=== PATIENT | female | born 1990 | race Asian ===

== ENCOUNTER 2018-06-04 04:55 | Inpatient (IN) | payer OTHER ==
[~2018-06-04] VITALS: Ht 157.5 cm; Wt 78.6 kg
[2018-06-04 05:40] LABS: MICROSCOPIC INDICATED
[2018-06-04] MEDS ORDERED: FENTANYL PF 100 MCG/2ML IV PRN (08:00)
[2018-06-04] MEDS ORDERED: OXYTOCIN 30U/ 0.9% NaCL 500ML 500 ML IV ONE (08:00)
[2018-06-04] MEDS ORDERED: D5%-LACTATED RINGERS 1,000 ML IV SCH (08:00)
[2018-06-04] MEDS ORDERED: ONDANSETRON 2MG/ML, 2ML IVPush PRN ×2 (08:00→12:30)
[2018-06-04] MEDS ORDERED: OXYTOCIN 30U/ 0.9% NaCL 500ML 500 ML IV PRN (08:00)
[2018-06-04] MEDS ORDERED: FENTANYL PF 100 MCG/2ML IVPush PRN (08:00)
[2018-06-04] MEDS ORDERED: LIDOCAINE 1%, 20ML ONE (08:46)
[2018-06-04] MEDS ORDERED: NEWBORN KIT ONE (08:46)
[2018-06-04] MEDS ORDERED: OXYTOCIN 30U/ 0.9% NaCL 500ML 500 ML ONE ×2 (08:46→21:19)
[2018-06-04] MEDS ORDERED: MISOPROSTOL 200 MCG TABLET ONE (08:46)
[2018-06-04] MEDS: LACTATED RINGERS 1,000 ML IV SCH ×2 (08:57→11:31)
[2018-06-04 08:59] LABS: BASOPHILS # (AUTO) 0.02 x10^3/uL (0-0.1); BASOPHILS % (AUTO) 0 % (0-1); EOSINOPHILS % (AUTO) 1 % (1-7); LYMPHOCYTES # (AUTO) 1.28 x10^3/uL (1-3.4); LYMPHOCYTES % (AUTO) 13 % (22-44); MD NO; MEAN CORPUSCULAR HEMOGLOBIN 31.6 pg (27.0-34.8); MEAN CORPUSCULAR HGB CONC 33.8 g/dL (32.4-35.8); MEAN CORPUSCULAR VOLUME 93.6 fL (80-100); MEAN PLATELET VOLUME 7.3 fL (7.4-10.4); MONOCYTES # (AUTO) 0.59 x10^3/uL (0.2-0.8); MONOCYTES % (AUTO) 6 % (2-9); NEUTROPHILS # (AUTO) 7.92 x10^3/uL (1.8-6.8); NEUTROPHILS % (AUTO) 80 % (42-75); PLATELET COUNT 268 x10^3/uL (130-400); RED CELL DISTRIBUTION WIDTH 14.6 % (9.6-15.2)
[2018-06-04] MEDS ORDERED: LACTATED RINGERS 1,000 ML IVBOLUS ONE (09:00)
[2018-06-04] MEDS ORDERED: FENTANYL/BUPIV./NS/PF 250 ML EPIDCONT SCH ×2 (09:10→12:15)
[2018-06-04] MEDS ORDERED: FENTANYL PF 100 MCG/2ML ONE ×2 (09:11→11:34)
[2018-06-04] MEDS ORDERED: BUPIVACAINE 0.25% ONE ×2 (09:12→11:34)
[2018-06-04 09:30] VITALS: BP 129/81
[2018-06-04] MEDS ORDERED: FENTANYL PF 500 MCG, BUPIVACAINE/PF 0.5%, 30ML 62.5 ML in SODIUM CHLORIDE 0.9% 177.5 ML EPIDCONT SCH (09:30)
[2018-06-04] MEDS ORDERED: LIDOCAINE/PF 1.5%-EPI 1:200K, 30ML ONE (11:34)
[2018-06-04] MEDS ORDERED: FENTANYL/BUPIV./NS/PF 250 ML EPIDCONT ONE (11:34)
[2018-06-04] MEDS ORDERED: LACTATED RINGERS 1,000 ML IV SCH (12:15)
[2018-06-04] MEDS ORDERED: EPHEDRINE 50 MG/ML, 1ML IVPush PRN (12:30)
[2018-06-04] MEDS ORDERED: LACTATED RINGERS 1,000 ML IVBOLUS PRN (12:30)
[2018-06-04] MEDS ORDERED: ACETAMINOPHEN 325 MG TABLET ONE (19:42)
[2018-06-04] MEDS ORDERED: METHYLERGONOVINE 0.2 MG/ML IM ONE (20:57)
[2018-06-04] MEDS ORDERED: OXYcodone/APAP 5/325MG TABLET ONE (21:40)
[2018-06-04] MEDS ORDERED: IBUPROFEN 600 MG TABLET ONE (21:40)
[2018-06-04] MEDS ORDERED: OXYTOCIN 30U/ 0.9% NaCL 500ML 500 ML IV SCH (21:40)
[2018-06-04] MEDS: IBUPROFEN 600 MG TABLET PO PRN (21:46)
[2018-06-04] MEDS ORDERED: MISOPROSTOL 200 MCG TABLET PR PRN (22:00)
[2018-06-04] MEDS ORDERED: METHYLERGONOVINE 0.2 MG/ML IM PRN (22:00)
[2018-06-04] MEDS ORDERED: CARBOPROST TROMETHAMINE 250 MCG/ML, 1ML IM PRN (22:00)
[2018-06-04] MEDS ORDERED: ONDANSETRON 2MG/ML, 2ML IV PRN (22:00)
[2018-06-04] MEDS ORDERED: ACETAMINOPHEN 325 MG TABLET PO PRN ×2 (22:00→22:30)
[2018-06-04] MEDS ORDERED: OXYTOCIN 10 UNITS/ML, 1ML IM PRN (22:00)
[2018-06-04] MEDS ORDERED: OXYcodone/APAP 5/325MG TABLET PO PRN ×2 (22:00)
[2018-06-04 23:55] VITALS: BP 128/84
[2018-06-05 04:15] VITALS: BP 125/76
[2018-06-05 05:26] LABS: BASOPHILS # (AUTO) 0.01 x10^3/uL (0-0.1); BASOPHILS % (AUTO) 0 % (0-1); EOSINOPHILS # (AUTO) 0.55 x10^3/uL (0-0.4); EOSINOPHILS % (AUTO) 3 % (1-7); LYMPHOCYTES # (AUTO) 1.28 x10^3/uL (1-3.4); LYMPHOCYTES % (AUTO) 7 % (22-44); MD NO; MEAN CORPUSCULAR HEMOGLOBIN 32.2 pg (27.0-34.8); MEAN CORPUSCULAR HGB CONC 34.2 g/dL (32.4-35.8); MEAN PLATELET VOLUME 7.1 fL (7.4-10.4); MONOCYTES # (AUTO) 1.01 x10^3/uL (0.2-0.8); MONOCYTES % (AUTO) 6 % (2-9); NEUTROPHILS # (AUTO) 14.52 x10^3/uL (1.8-6.8); NEUTROPHILS % (AUTO) 84 % (42-75); PLATELET COUNT 235 x10^3/uL (130-400); RED BLOOD COUNT 3.26 x10^6/uL (3.82-5.3); RED CELL DISTRIBUTION WIDTH 14.8 % (9.6-15.2)
[2018-06-05 08:10] VITALS: BP 124/81
[2018-06-05] MEDS: PRENATAL VIT/IRON/FA 1 EACH TABLET PO SCH (10:36)
[2018-06-05] MEDS: DOCUSATE 100 MG CAPSULE PO PRN (10:36)
[2018-06-05] MEDS: IBUPROFEN 600 MG TABLET PO PRN (16:41)
[2018-06-05 19:30] VITALS: BP 143/90
[2018-06-05 20:15] VITALS: BP 130/88
[2018-06-06] MEDS: IBUPROFEN 600 MG TABLET PO PRN ×2 (03:54→10:59)
[2018-06-06 09:00] VITALS: BP 143/87
[2018-06-06] MEDS: PRENATAL VIT/IRON/FA 1 EACH TABLET PO SCH (09:23)
[2018-06-06] MEDS: DOCUSATE 100 MG CAPSULE PO PRN (09:23)
[2018-06-06] MEDS ORDERED: SENN-92 PO (12:07)
[2018-06-06] MEDS ORDERED: HYDR-3240 PO (12:07)
[2018-06-06] MEDS ORDERED: IBUP-1222 PO (12:07)
== END 2018-06-06 14:04 | disposition home or self-care (01) | DRG 807 ==
LOC: LDOP 04:55 → LDIP 08:00 → 2NW 23:46
PROVIDERS: ADMIT Obstetrics & Gynecology; ATTEND Obstetrics & Gynecology
PROC: 10E0XZZ Delivery of Products of Conception, External Approach (ICD-10-PCS; principal; 2018-06-04)
PROC: 0KQM0ZZ Repair Perineum Muscle, Open Approach (ICD-10-PCS; 2018-06-04)
PROC: 10907ZC Drainage of Amniotic Fluid, Therapeutic from Products of Conception, Via Natural or Artificial Opening (ICD-10-PCS; 2018-06-04)
PROC: 3E0R3BZ Introduction of Anesthetic Agent into Spinal Canal, Percutaneous Approach (ICD-10-PCS; 2018-06-04)
PROC: 00HU33Z Insertion of Infusion Device into Spinal Canal, Percutaneous Approach (ICD-10-PCS; 2018-06-04)
DX: O41.03X0 Oligohydramnios, third trimester, not applicable or unspecified (principal); Z37.0 Single live birth; O70.1 Second degree perineal laceration during delivery; Z3A.38 38 weeks gestation of pregnancy
CPT/HCPCS: 36415; 76815; 81001; 85025; 86850; 86900; 87086; G0378; J3010; J3490; J2590; J7120